=== PATIENT | male | born 1960 | race Caucasian/White ===

== ENCOUNTER → 2021-11-02 | Outpatient (REF) | payer OTHER ==
[2021-11-08 12:08] LABS: Ca Ox Monohydrate 100 % (.); Size 4x4 mm (.)
== END ==
LOC: M SMT 13:12
PROVIDERS: ATTEND Specialist
DX: N20.0 Calculus of kidney (principal)
CPT/HCPCS: 82365; G0463

== ENCOUNTER → 2022-12-21 | Outpatient (REF) | payer OTHER | LOC: M SMT 16:48 | PROVIDERS: ATTEND Specialist | DX: N20.0 Calculus of kidney (principal) ==